=== PATIENT | female | born 1990 | race Caucasian/White ===

== ENCOUNTER 2018-07-28 23:11 | Emergency (ER) | payer MEDICAID ==
[~2018-07-28] VITALS: Ht 157.5 cm; Wt 59.0 kg
[2018-07-28 23:15] VITALS: BP_SYST 120
[2018-07-29 01:05] VITALS: BP_SYST 120
== END 2018-07-29 01:05 | disposition home or self-care (01) ==
LOC: SED 23:11
DX: H60.91 Unspecified otitis externa, right ear (principal); F17.210 Nicotine dependence, cigarettes, uncomplicated
CPT/HCPCS: 99283

== ENCOUNTER 2018-08-01 03:56 | Emergency (ER) | payer MEDICAID ==
[~2018-08-01] VITALS: Ht 157.5 cm; Wt 56.7 kg
[2018-08-01 04:04] VITALS: BP_SYST 114
[2018-08-01] MEDS ORDERED: NACL 0.9% 1,000 ML IV ONE (04:45)
[2018-08-01 05:59] VITALS: BP_SYST 114
== END 2018-08-01 06:04 | disposition home or self-care (01) ==
LOC: SED 03:56
DX: R55 Syncope and collapse (principal)
CPT/HCPCS: 81002; 81025; 93005; 99283; J7030

== ENCOUNTER 2018-12-14 17:24 | Emergency (ER) | payer MEDICAID ==
[~2018-12-14] VITALS: Ht 157.5 cm; Wt 60.3 kg
[2018-12-14 17:42] VITALS: BP_SYST 149
[2018-12-14 18:28] LABS: BASOPHILS % (AUTO) 0.7 % (0.0-2.0); EOSINOPHILS # (AUTO) 0.2 K/uL (0.0-0.4); EOSINOPHILS % (AUTO) 2.5 % (0.0-4.0); HEMATOCRIT 37.6 % (36-48); HEMOGLOBIN 12.6 g/dL (12.0-16.0); LYMPHOCYTES # (AUTO) 1.8 K/uL (1.0-5.5); LYMPHOCYTES % (AUTO) 26.2 % (20.5-51.5); MEAN CORPUSCULAR HEMOGLOBIN 32 pg (27-31); MEAN CORPUSCULAR HGB CONC 34 % (32-36); MEAN CORPUSCULAR VOLUME 95 fL (79.0-98.0); MONOCYTES # (AUTO) 0.5 K/uL (0.0-1.0); MONOCYTES % (AUTO) 6.9 % (1.7-9.3); NEUTROPHILS # (AUTO) 4.3 K/uL (1.8-7.7); NEUTROPHILS % (AUTO) 63.7 % (40.0-70.0); PLATELET COUNT (AUTO) 284 K/uL (130-430); RED BLOOD CELL COUNT(AUTO) 3.96 MIL/uL (4.2-6.2); RED CELL DISTRIBUTION WIDTH 12.4 % (9.0-15.0); WHITE BLOOD COUNT (AUTO) 6.7 K/uL (4.8-10.8)
[2018-12-14 19:06] LABS: BILIRUBIN,URINE NEGATIVE (NEGATIVE); BLOOD, URINE 2+ (NEGATIVE); CLARITY/URINE CLEAR (CLEAR); COLOR,URINE YELLOW (YELLOW); GLUCOSE,URINE NEGATIVE (NEGATIVE); KETONES,URINE NEGATIVE (NEGATIVE); LEUKOCYTE ESTERASE ,URINE NEGATIVE (NEGATIVE); NITRITE, URINE NEGATIVE (NEGATIVE); PH,URINE 6.5 (5.0-8.0); PROTEIN URINE NEGATIVE (NEGATIVE); UROBILINOGEN,URINE 0.2 (0.2-1.0)
[2018-12-14 19:11] LABS: BACTERIA,URINE FEW /HPF (None Seen); WBC,URINE 0-3 /HPF (0-3)
[2018-12-14 19:12] LABS: MUCUS,URINE None Seen /LPF (None Seen)
[2018-12-14 19:38] VITALS: BP_SYST 149
== END 2018-12-14 19:38 | disposition home or self-care (01) ==
LOC: SED 17:24
DX: O20.0 Threatened abortion (principal); Z3A.01 Less than 8 weeks gestation of pregnancy
CPT/HCPCS: 36415; 76805-TC; 81000-TC; 84702-TC; 85025; 86900; 86901; 99284

== ENCOUNTER 2018-12-19 09:59 | Emergency (ER) | payer MEDICAID ==
[~2018-12-19] VITALS: Ht 157.5 cm; Wt 60.3 kg
[2018-12-19 10:16] VITALS: BP_SYST 109
[2018-12-19 11:07] LABS: BASOPHILS % (AUTO) 0.3 % (0.0-2.0); EOSINOPHILS # (AUTO) 0.1 K/uL (0.0-0.4); EOSINOPHILS % (AUTO) 1.2 % (0.0-4.0); HEMATOCRIT 36.3 % (36-48); HEMOGLOBIN 12.6 g/dL (12.0-16.0); LYMPHOCYTES # (AUTO) 1.8 K/uL (1.0-5.5); LYMPHOCYTES % (AUTO) 17.3 % (20.5-51.5); MEAN CORPUSCULAR HEMOGLOBIN 32 pg (27-31); MEAN CORPUSCULAR HGB CONC 35 % (32-36); MEAN CORPUSCULAR VOLUME 94 fL (79.0-98.0); MONOCYTES # (AUTO) 0.7 K/uL (0.0-1.0); MONOCYTES % (AUTO) 6.4 % (1.7-9.3); NEUTROPHILS % (AUTO) 74.8 % (40.0-70.0); PLATELET COUNT (AUTO) 279 K/uL (130-430); RED BLOOD CELL COUNT(AUTO) 3.88 MIL/uL (4.2-6.2); RED CELL DISTRIBUTION WIDTH 12.5 % (9.0-15.0); WHITE BLOOD COUNT (AUTO) 10.7 K/uL (4.8-10.8)
[2018-12-19] MEDS ORDERED: MORPHINE 4 MG/ML INJ. SYRINGE IVP ONE (13:15)
[2018-12-19] MEDS ORDERED: ONDANSETRON HCL 4 MG/2 ML VIAL IVP ONE (13:15)
[2018-12-19] MEDS ORDERED: MORPHINE 4 MG/ML INJ. SYRINGE ONE (13:17)
[2018-12-19] MEDS ORDERED: ONDANSETRON HCL 4 MG/2 ML VIAL ONE (13:17)
[2018-12-19 14:26] VITALS: BP_SYST 105
== END 2018-12-19 14:24 | disposition home or self-care (01) ==
LOC: SED 09:59
DX: O03.4 Incomplete spontaneous abortion without complication (principal); F17.210 Nicotine dependence, cigarettes, uncomplicated
CPT/HCPCS: 36415; 76817; 84702; 85025; 96374; 96375; 99284; J2270; J2405